=== PATIENT | female | born 1955 | race Caucasian/White ===

== ENCOUNTER 2024-09-16 14:20 | Emergency (ER) | payer OTHER, SELFPAY ==
[2024-09-16 15:37] VITALS: BP 178/119; PULSE 62; RESP 18; TEMP 36.6; O2SAT 99; BMI 21.8
--- NOTE | 2024-09-16 15:43 | DI.RAD.S_ITS ---
PROCEDURE: XR RIBS LT 2V INDICATIONS: fall/pain TECHNIQUE: 2 views of the ribs were acquired. COMPARISON: None. FINDINGS: Surgical changes and devices: None. Bones and chest wall: Mildly displaced left lateral 8th rib. Lungs and pleura: The visualized lung appears clear. No pleural effusions or pneumothorax are visible. IMPRESSION: Mildly displaced left lateral 8th rib. No appreciable pneumothorax. Dictated by: Dwayne Schmid M.D. on 09/16/2024 at 16:16 Approved by: Dwayne cShmid M.D. on 09/16/2024 at 16:17
[2024-09-16 17:00] VITALS: BP 185/83; PULSE 85
--- NOTE | 2024-09-16 17:22 | ED.FALL ---
HPI - Fall General Chief Complaint: Fall Stated Complaint: Fell at work today Time Seen by Provider: 09/16/24 17:21 Source: patient Mode of arrival: Ambulatory History of Present Illness HPI Narrative: Ms. Jennings is a very pleasant 69-year-old female with a past medical history of hypertension, osteoporosis, hyperlipidemia who presents to the emergency department for left rib pain after a trip and fall that occurred at work earlier today. Patient states she was walking down the hallway with headphones in her left hand and holding a child hand with her right hand when she accidentally tripped and fell forward landing on her left side with a flexed arm in front of her. She immediately had severe pain of the left ribcage. She did not hit her head or lose consciousness. She was able to get up with assistance and walk around since then. She denies any pain of her head, neck, extremities but she does have persistent left lateral rib pain that is worse with a deep breath and with laughing. No bruising or bleeding or lacerations. No visual disturbance lightheadedness or dizziness. No medications prior to arrival. She is here with her daughter's friend who is her regional company hazmat tanker driver. Related Data Previous Rx's Medication Instructions Recorded hydrocodone 5 mg-acetaminophen 325 1 tab PO Q4-6H PRN pain #12 tabs 09/16/24 mg tablet Allergies Allergy/AdvReac Type Severity Reaction Status Date / Time Penicillins Allergy Verified 09/16/24 15:37 Sulfa (Sulfonamide Allergy Verified 09/16/24 15:37 Antibiotics) Review of Systems Review of Systems ROS Unobtainable: All systems reviewed & are unremarkable except as noted in HPI and below Patient History Social History Smoking Status: Never smoker Smoking Status: Never smoker Exam Narrative Exam Narrative: GENERAL: 69 year old patient appears stated age. Well-developed patient, in no acute distress. HEAD: Atraumatic. Normocephalic. EYES: PERRL. Extraocular motions intact. No scleral icterus. No injection or drainage. ENT: Nose without bleeding, purulent drainage. Throat without erythema, tonsillar hypertrophy or exudate. Airway patent. NECK: Trachea midline. Cervical ROM intact. CARDIOVASCULAR: Regular rate and rhythm. RESPIRATORY: ?There is tenderness to palpation of the left lateral chest wall. Nonlabored respirations. ?Speaking in clear, full sentences. ?Clear to auscultation. Breath sounds equal bilaterally. No wheezes, rales, or rhonchi. ? GASTROINTESTINAL: Abdomen soft, non-tender, nondistended. No bruising. EXTREMITIES: No edema or joint tenderness. No tenderness to palpation of appendicular skeleton. Full range of motion of all extremities. Strong bilateral radial pulses. BACK: Nontender without deformity or crepitance. No flank tenderness. NEURO: AOx3. ?Clear speech. ?Moves all 4 extremities appropriately. No facial asymmetry. SKIN: No rash or erythema of visible areas Initial Vital Signs Initial Vital Signs: Vital Signs Temperature 97.8 F 09/16/24 15:37 Pulse Rate 62 09/16/24 15:37 Respiratory Rate 18 09/16/24 15:37 Blood Pressure 178/119 H 09/16/24 15:37 Pulse Oximetry 99 09/16/24 15:37 Oxygen Delivery Method Room Air 09/16/24 15:37 Course Orders Ordered: ED Orders 09/16/24 15:43 XR ribs LT 2V Stat Discontinued Medications Hydrocodone Bitart/Acetaminophen (Hydrocodone/Acet 5/325 Tablet) 1 tab PO NOW ONE Stop: 09/16/24 17:44 Last Admin: 09/16/24 17:53 Dose: 1 tab Documented By: STEPHANIE Ibuprofen (Ibuprofen 400 Mg Tablet) 400 mg PO NOW ONE Stop: 09/16/24 17:44 Last Admin: 09/16/24 17:53 Dose: 400 mg Documented By: STEPHANIE Vital Signs Vital signs: Vital Signs - 8 hr 09/16/24 15:37 09/16/24 17:00 Temperature 97.8 F Pulse Rate 62 85 Respiratory Rate 18 Blood Pressure 178/119 H 185/83 H Pulse Oximetry 99 Oxygen Delivery Method Room Air [facility] - Fall Medical Records Medical records narrative: None available for review Imaging Data Left Ribs XR: Radiologist's Impression: PROCEDURE: XR RIBS LT 2V INDICATIONS: fall/pain TECHNIQUE: 2 views of the ribs were acquired. COMPARISON: None. FINDINGS: Surgical changes and devices: None. Bones and chest wall: Mildly displaced left lateral 8th rib. Lungs and pleura: The visualized lung appears clear. No pleural effusions or pneumothorax are visible. IMPRESSION: Mildly displaced left lateral 8th rib. No appreciable pneumothorax. [facility] Narrative Medical decision making narrative: 69-year-old female with a past medical history of hypertension, osteoporosis, hyperlipidemia who presents to the emergency department for left rib pain after a trip and fall that occurred at work earlier today. Differential diagnosis includes but is not limited chest wall contusion, rib fracture, pneumothorax, etc. On exam patient is in no acute distress, nontoxic appearing, vital signs appropriate except for elevated blood pressure. She is having left chest wall/rib pain after a fall directly onto this area. She has full range of motion of extremities and no tenderness to palpation of any of the appendicular joints. She does have direct tenderness to palpation of the left lateral ribcage. Rib x-ray was obtained in triage reveal a mildly displaced left 8th rib fracture. She has no abdominal tenderness, no bruising, and she does have clear lung sounds throughout. We will treat with incentive spirometry and pain control. We discussed strict ED return precautions. Patient verbalized understanding of all information is agreeable to this plan. Advised follow up with PCP. She is stable for discharge home and has a ride home. Discharge Plan Departure Patient Disposition: Home Clinical Impression: Fall on same level from tripping Left rib fracture Qualifiers: Encounter type: initial encounter Rib fracture type: single rib Fracture type: closed Qualified Code(s): S22.32XA - Fracture of one rib, left side, initial encounter for closed fracture Instructions: DI for Rib Fracture Activity Restrictions/Additional Instructions: Thank you for coming to the emergency department. I am sorry that you suffered injury from fall today at work. Your x-ray shows a left 8th rib fracture. It is very important to use the incentive spirometer to encourage deep breaths, please use the prescribed hydrocodone/acetaminophen as needed, and also use ibuprofen and Tylenol. Please return to the emergency department if you develop any new or worsening symptoms such as difficulty breathing, severe pain, abdominal pain, vomiting or any concerns. Please take Ibuprofen (Motrin/Advil) or Acetaminophen (Tylenol) for pain. These are available over the counter. You may take Ibuprofen 600 mg every 8 hours with food for pain. You may also take Acetaminophen 650 mg every 4-6 hours for pain. Do not exceed 3000 mg of Tylenol a day as this can cause liver damage. Do not drink alcohol with either of these medications. You have been prescribed a short course of narcotic medications. These are potentially dangerous and addictive medications that should be used carefully. While on these medications you cannot drive or operate heavy machinery. Additionally, you cannot sign legal documents or perform any duties such as this. 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 Please understand that we cannot provide further refills of narcotics or controlled substances through the ED and your pain management will need to be through your Primary Care Provider Please follow up with your primary care doctor within the next 2-3 days for ER follow-up. (If you do not have a PCP you can call [phone]. ?to schedule an appointment with an [facility] Primary Care Provider) IF YOU DEVELOP ANY NEW OR WORSENING SYMPTOMS, RETURN TO THE ER! Please read the attached instructions, they highlight more specific treatments and interventions for you at home. Thank you for letting me participate in your care, Gemma Duke PA-C Prescriptions: New hydrocodone-acetaminophen 5-325 mg tablet 1 tab PO Q4-6H PRN (Reason: pain) Qty: 12 0RF Stand Alone Forms: Patient Portal/API/Survey, Work Release Note
[2024-09-16] MEDS: IBUPROFEN 400 MG TABLET PO (17:53)
[2024-09-16] MEDS: HYDROCODONE/ACET 5/325 TABLET 1 TAB PO (17:53)
== END 2024-09-16 18:39 | disposition home or self-care (01) ==
PROVIDERS: Emergency Provider Physician Assistant
DX: S22.32XA Fracture of one rib, left side, initial encounter for closed fracture (principal); W01.0XXA Fall on same level from slipping, tripping and stumbling without subsequent striking against object, initial encounter
CPT/HCPCS: 71100; 99283